=== PATIENT | male | born 1945 | race Caucasian/White ===

== ENCOUNTER → 2021-06-17 | Outpatient (CLI) | payer MEDICARE, BC ==
[~2021-06-17] VITALS: Ht 185.4 cm; Wt 89.4 kg
[~2021-06-17] MED LIST: INCRUSE EL62.5 MCG/A IH; NORVASC 5MG5 MG/TAB PO; RT ADVAIR 228 DISKUS IH
[2021-06-17 09:25] VITALS: BP 98/68; PULSE 84; TEMP 97.5
== END ==
LOC: COL.RAD 06-07 09:00
DX: R91.1 Solitary pulmonary nodule (principal)